=== PATIENT | female | born 1955 | race Hispanic/Latino ===

== ENCOUNTER 2021-10-23 14:33 | Emergency (ER) | payer MEDICARE, MEDICAID ==
[~2021-10-23] VITALS: Ht 167.6 cm; Wt 65.5 kg
[~2021-10-23 14:33] MED LIST: ATENOLOL50 MG PO; FLEXERIL PO; HYOMAX-SL0.125 MG SL; LEVOTHYROXIN50 MC1 OR; NAPROSYN500 MG PO; NORVASC OR; PROTONIX40 M2 OR; RIBASPHERE200 M1 OR; RIBASPHERE600 MG OR; ULTRAM50 MG OR
[2021-10-23] MEDS ORDERED: ZPAK PO (16:54)
[2021-10-23 17:06] VITALS: BP 137/77
== END 2021-10-23 17:06 | disposition home or self-care (01) ==
LOC: ED 14:33
DX: J06.9 Acute upper respiratory infection, unspecified (principal); Z20.822 Contact with and (suspected) exposure to COVID-19

== ENCOUNTER 2023-03-24 07:59 | Day surgery (SDC) | payer MEDICARE, MEDICAID ==
[~2023-03-24] VITALS: Ht 167.6 cm; Wt 65.3 kg
[~2023-03-24 07:59] MED LIST changes: +LEVOTHYROXIN50 MCG PO; +LISINOPRIL10 MG PO; +ROSUVASTATIN CA20 MG PO; +ZPAK PO
[2023-03-24 10:31] VITALS: BP 151/95
== END 2023-03-24 10:50 | disposition home or self-care (01) ==
LOC: ENDO 07:59
PROVIDERS: ATTEND Surgery
PROC: 0DJD8ZZ Inspection of Lower Intestinal Tract, Via Natural or Artificial Opening Endoscopic (ICD-10-PCS; principal; 2023-03-24)
DX: K64.8 Other hemorrhoids (principal); I10 Essential (primary) hypertension

== ENCOUNTER 2023-05-06 10:57 | Emergency (ER) | payer MEDICARE, MEDICAID ==
[2023-05-06] VITALS (11 sets, daily range): BP systolic 123–146; BP diastolic 77–93
[~2023-05-06] VITALS: Ht 167.6 cm; Wt 65.7 kg
[2023-05-06 11:44] LABS: BASO% 0.5 % (0-3); EOS% 3.4 % (0-8); HEMATOCRIT 42.8 % (37.0-47.0); HEMOGLOBIN 13.7 g/dl (12.0-16.0); IMMATURE GRANULOCYTES 0.5 % (0.0-5.0); LYMPH% 35.1 % (15-41); MEAN CELL VOLUME 91.3 fL CALC (80.0-100.0); MEAN CORPUSCULAR HGB 29.2 pG CALC (26.0-32.0); MONO% 13.1 % (2-13); NEUT# 3.77 thou/uL (2.00-7.15); NEUT% 47.4 % (42-76); RED BLOOD COUNT 4.69 mill/uL (4.20-5.60); RED CELL DISTRI WIDTH 13.7 % (11.5-15.5)
[2023-05-06 11:56] LABS: URINE BILIRUBIN - DIPSTICK NEGATIVE (NEGATIVE); URINE BLOOD DIPSTICK NEGATIVE (NEGATIVE); URINE COLOR YELLOW; URINE GLUCOSE - DIPSTICK NEGATIVE (NEGATIVE); URINE KETONE NEGATIVE (NEGATIVE); URINE LEUK ESTERASE NEGATIVE (NEGATIVE); URINE PROTEIN - DIPSTICK NEGATIVE (NEG-TRACE); URINE UROBILINOGEN - DIPSTICK 0.2 E.U./dL (0.2)
[2023-05-06 12:00] LABS: INTERNATIONAL NORMALIZED RATIO 1.1 RATIO (0.7-1.3); PROTHROMBIN TIME 10.5 SECONDS (9.0-12.5)
[2023-05-06 12:01] LABS: URINE NITRITE - DIPSTICK NEGATIVE (Negative)
[2023-05-06 12:13] LABS: ALBUMIN 4.4 g/dL (3.2-5.0); ALKALINE PHOSPHATASE 72 u/l (38-126); ANION GAP 11 (6-22 (CALC)); BILIRUBIN, TOTAL 0.9 mg/dL (0.02-1.3); BUN 12 mg/dL (8-23); BUN/CREATININE RATIO 15 (12-20 (CALC)); CARBON DIOXIDE 28 mmol/l (22-30); CHLORIDE 102 mmol/l (95-108); CREATININE 0.8 mg/dL (0.5-1.0); GFR FOR AFR.AMER. > 60 ML/MIN (>=60 (CALC)); GFR OTHER RACES > 60 ML/MIN (>=60 (CALC)); MAGNESIUM 1.9 mg/dL (1.6-2.3); SGOT/AST 33 u/l (9-36); SODIUM 137 mmol/l (137-146); TOTAL PROTEIN 7.4 g/dL (6.3-8.2)
== END 2023-05-06 14:28 | disposition home or self-care (01) ==
LOC: ED 10:57
PROVIDERS: Nurse Practitioner
DX: I49.3 Ventricular premature depolarization (principal); I10 Essential (primary) hypertension

== ENCOUNTER 2023-06-17 12:04 | Observation (INO) | payer MEDICARE, MEDICAID ==
[2023-06-17] VITALS (8 sets, daily range): BP systolic 129–150; BP diastolic 82–99
[~2023-06-17] VITALS: Ht 167.6 cm; Wt 63.5 kg
[2023-06-17 12:32] LABS: BASO% 0.4 % (0-3); EOS% 1.1 % (0-8); HEMATOCRIT 41.8 % (37.0-47.0); HEMOGLOBIN 13.6 g/dl (12.0-16.0); IMMATURE GRANULOCYTES 0.3 % (0.0-5.0); LYMPH% 37.6 % (15-41); MEAN CELL VOLUME 91.1 fL CALC (80.0-100.0); MEAN CORPUSCULAR HGB 29.6 pG CALC (26.0-32.0); MEAN CORPUSCULAR HGB CONC 32.5 g/dL CAL (32.0-36.0); MONO% 9.6 % (2-13); NEUT# 4.58 thou/uL (2.00-7.15); RED BLOOD COUNT 4.59 mill/uL (4.20-5.60); RED CELL DISTRI WIDTH 13.6 % (11.5-15.5)
[2023-06-17 12:48] LABS: ALBUMIN 4.4 g/dL (3.2-5.0); ALKALINE PHOSPHATASE 65 u/l (38-126); ANION GAP 12 (6-22 (CALC)); BILIRUBIN, TOTAL 0.9 mg/dL (0.02-1.3); BUN 16 mg/dL (8-23); BUN/CREATININE RATIO 19 (12-20 (CALC)); CARBON DIOXIDE 26 mmol/l (22-30); CHLORIDE 104 mmol/l (95-108); CREATININE 0.8 mg/dL (0.5-1.0); GFR FOR AFR.AMER. > 60 ML/MIN (>=60 (CALC)); GFR OTHER RACES > 60 ML/MIN (>=60 (CALC)); POTASSIUM 4.2 mmol/l (3.5-5.1); SGOT/AST 33 u/l (9-36); SODIUM 138 mmol/l (137-146); TOTAL PROTEIN 7.8 g/dL (6.3-8.2)
[2023-06-17] MEDS ORDERED: LISINOP/HCTZ1 TAB PO (15:14)
== END 2023-06-17 15:33 | disposition left against medical advice (07) ==
LOC: ED 12:04 → ED-I 14:07 → ED 14:17 → MS2 14:18
PROVIDERS: Nurse Practitioner; ADMIT Internal Medicine; ATTEND Internal Medicine
DX: R07.89 Other chest pain (principal); I10 Essential (primary) hypertension; E78.5 Hyperlipidemia, unspecified; R20.0 Anesthesia of skin; R20.2 Paresthesia of skin; M25.512 Pain in left shoulder; M25.511 Pain in right shoulder

== ENCOUNTER 2025-02-09 07:48 | Day surgery (SDC) | payer MEDICARE, MEDICAID ==
[~2025-02-09] VITALS: Ht 167.6 cm; Wt 60.3 kg
[~2025-02-09 07:48] MED LIST changes: +BL IBUPROFEN200 MG PO; +LISINOP/HCTZ1 TAB PO; +OMEPRAZOLE DR40 MG PO
[2025-02-09] MEDS ORDERED: LACTATED RINGER'S 1,000 ML IV ONE (07:51)
[2025-02-09] MEDS ORDERED: FAMOTIDINE 10MG/ML 2ML SDV IV ONE (07:51)
[2025-02-09 09:47] VITALS: BP 143/90
[2025-02-09] MEDS ORDERED: LIDOCAINE HCL 2% 2ML SDV IV ONE (12:07)
[2025-02-09] MEDS ORDERED: PROPOFOL 200 MG/20 ML VIAL IV ONE (12:07)
== END 2025-02-09 09:58 | disposition home or self-care (01) ==
LOC: ORM 07:48
PROVIDERS: ATTEND Surgery
PROC: 0DB48ZX Excision of Esophagogastric Junction, Via Natural or Artificial Opening Endoscopic, Diagnostic (ICD-10-PCS; principal; 2025-02-09)
PROC: 0DB78ZX Excision of Stomach, Pylorus, Via Natural or Artificial Opening Endoscopic, Diagnostic (ICD-10-PCS; 2025-02-09)
DX: K21.9 Gastro-esophageal reflux disease without esophagitis (principal); K31.89 Other diseases of stomach and duodenum; K29.70 Gastritis, unspecified, without bleeding; I10 Essential (primary) hypertension; E78.5 Hyperlipidemia, unspecified